=== PATIENT | male | born 1975 | race Caucasian/White ===

== ENCOUNTER 2019-02-25 00:48 | Emergency (ER) | payer BC ==
[2019-02-25] MEDS: VANCOMYCIN 1 GM (PMX) 250 ML IVPB (02:29)
[2019-02-25] MEDS: DIPHTH/TET/ACEL PERTUSS (ADULT) 0.5 ML VIAL IM* (02:29)
[2019-02-25] MEDS: BACITRACIN 0.9 GM OINT TOP (02:29)
== END 2019-02-25 05:10 | disposition home or self-care (01) ==
LOC: E/R 00:48
DX: S81.811A Laceration without foreign body, right lower leg, initial encounter (principal); I10 Essential (primary) hypertension; L03.115 Cellulitis of right lower limb; F10.10 Alcohol abuse, uncomplicated; R22.41 Localized swelling, mass and lump, right lower limb; W26.8XXA Contact with other sharp object(s), not elsewhere classified, initial encounter; Y92.9 Unspecified place or not applicable; Z23 Encounter for immunization
CPT/HCPCS: 90471; 90715; 96365; 96366; 99284-25